=== PATIENT | male | born 1985 | race Caucasian/White ===

== ENCOUNTER 2022-05-18 19:17 | Day surgery (SDC) | payer BC, MEDICAID ==
[2022-05-18] MEDS ORDERED: Ondansetron 4 MG/2 ML SDV IVPUSH ONE (19:53)
[2022-05-18] MEDS ORDERED: Sodium Chloride 0.9% 1,000 ML IV SCH (20:00)
[2022-05-18] MEDS: HYDROmorphone 1 MG/ML Syringe IVPUSH ONE ×2 (20:17→20:40)
[2022-05-18] MEDS ORDERED: Lactated Ringers 1,000 ML IV SCH (20:30)
[2022-05-18] MEDS ORDERED: Midazolam 1 MG/ML 2 ML SDV ONE (21:05)
[2022-05-18] MEDS ORDERED: Propofol 200 MG/20 ML SDV ONE (21:05)
[2022-05-18] MEDS ORDERED: Lidocaine 1% 4 ML ONE (21:06)
[2022-05-18] MEDS ORDERED: Dexamethasone 4 MG/ML SDV ONE (21:06)
[2022-05-18] MEDS ORDERED: Ondansetron 4 MG/2 ML SDV ONE (21:06)
[2022-05-18] MEDS ORDERED: fentaNYL 250 MCG/5 ML SDV ONE (21:06)
[2022-05-18] MEDS ORDERED: Succinylcholine 200 MG/10 ML MDV ONE (21:06)
[2022-05-18] MEDS ORDERED: Sugammadex Sodium 200 MG/2 ML VIAL ONE (22:18)
[2022-05-18] MEDS ORDERED: Ondansetron 4 MG/2 ML SDV IVPUSH PRN (23:39)
[2022-05-18] MEDS ORDERED: fentaNYL 100 MCG/2 ML SDV IVPUSH PRN (23:39)
[2022-05-18] MEDS ORDERED: HYDROmorphone 0.5 MG/0.5 ML Syringe IVPUSH PRN (23:39)
== END 2022-05-19 00:42 | disposition home or self-care (01) ==
LOC: JD.ED 19:17 → JD.SDS 21:20
PROVIDERS: ATTEND Surgery
DX: T18.198A Other foreign object in esophagus causing other injury, initial encounter (principal); E66.9 Obesity, unspecified; Z68.34 Body mass index [BMI] 34.0-34.9, adult; Z88.1 Allergy status to other antibiotic agents; Z79.899 Other long term (current) drug therapy
CPT/HCPCS: 43247; 99284; J0330; J1100; J1170; J2250; J2405; J2704; J3010; J3490; J7030; J7120; 00731